=== PATIENT | male | born 1995 | race Caucasian/White ===

== ENCOUNTER 2016-07-02 16:22 | Emergency (ER) | payer OTHER ==
[~2016-07-02 16:22] MED LIST: IBUPROFEN PO; NORCO 5/325 TAB1 TAB PO
== END 2016-07-02 16:25 | disposition home or self-care (01) ==
LOC: CED 16:22
DX: K60.2 Anal fissure, unspecified (principal); Z98.890 Other specified postprocedural states; Z88.5 Allergy status to narcotic agent
CPT/HCPCS: 99283